=== PATIENT | male | born 1980 | race African-American/Black ===

== ENCOUNTER 2016-11-04 02:12 | Emergency (ER) | payer MEDICAID ==
[2016-11-04 02:21] VITALS: BP 168/92
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
[2016-11-04] MEDS ORDERED: NAPROXEN SODIUM 550 MG TABLET PO ONE (02:59)
[2016-11-04] MEDS ORDERED: NAPROXEN SODIUM 550 MG TABLET ONE (03:03)
== END 2016-11-04 03:07 | disposition home or self-care (01) ==
LOC: ER 02:12
DX: S83.412A Sprain of medial collateral ligament of left knee, initial encounter (principal); F17.200 Nicotine dependence, unspecified, uncomplicated; V29.9XXA Motorcycle rider (driver) (passenger) injured in unspecified traffic accident, initial encounter; Y93.I9 Activity, other involving external motion; Y92.410 Unspecified street and highway as the place of occurrence of the external cause